=== PATIENT | female | born 1995 | race Caucasian/White ===

== ENCOUNTER 2018-01-31 14:20 | Day surgery (SDC) | payer OTHER, MEDICAID, SELFPAY ==
[2018-01-31] VITALS (9 sets, daily range): BP systolic 80–107; BP diastolic 38–83; PULSE 44–81; RESP 10–17; TEMP 36.1–37.1; O2SAT 96–100; BMI 18.6
--- NOTE | 2018-01-31 | PATH_ITS ---
[facility] Accession Number: [id number] . 01 Material submitted: . PART A: SMALL BOWEL PART B: GASTRIC . 01 Clinical history: . A: FOR CELIAC B: FOR H. PYLORI . 02 Diagnosis: A. Small Bowel, Biopsy: Duodenal mucosa with no diagnostic abnormality. Negative for active inflammation, features of sprue, dysplasia, and malignancy. . B. Stomach, Biopsy: Antral and body-type mucosa with no diagnostic abnormality. Negative for Helicobacter by immunohistochemistry. Negative for intestinal metaplasia. Negative for dysplasia and malignancy. [facility]/02/02/2018 . 02 Electronically signed: . Debra Perez MD, Pathologist NPI- [id number] . 01 Gross description: . Part A: SMALL BOWEL: Received in formalin are 3 fragment(s) of kendall, soft tissue measuring 0.3 x 0.3 x 0.2 cm to 0.2 x 0.1 x 0.1 cm submitted entirely in 1 cassette(s) Part B: GASTRIC: Received in formalin are 4 fragment(s) of kendall, soft tissue measuring 0.5 x 0.2 x 0.1 cm to 0.1 x 0.1 x 0.1 cm submitted entirely in 1 cassette(s) /CKI /CKI . 02 Microscopic: . Part B: An immunohistochemical stain was performed to evaluate for Helicobacter organisms and is negative. The control stain shows appropriate reactivity. . * This test was developed and its performance characteristics determined by [facility]. It has not been cleared or approved by the U.S. Food and Drug Administration. The FDA has determined that such clearance or approval is not necessary. This test is used for clinical purposes. It should not be regarded as investigational or for research. . 02 Pathologist provided ICD-10: R10.9 . 02 CPT . 553534, 479809, L97409 Performed at: 01 [facility] [address] [id number] MD Nino Fowler MD Phone: [phone] Performed at: 02 [facility] [id number] [place], [place] [id number] MD Ilan Arciniega MD Phone: [phone]
[2018-01-31] MEDS: SODIUM CHLORIDE 0.9% 1,000 ML 70 ML IV (14:52)
--- NOTE | 2018-01-31 15:13 | PM.HP.1 ---
History of Present Illness Date Patient Seen: 01/31/18 Chief complaint: [id number] EGD W/POSS BX Narrative: The patient is a 22-year-old female who is being seen as a primary EGD. I have reviewed prior records from [facility] from 09/13/2017 the patient presented with abdominal pain and was given antinausea medication and was discharged improved. She had visited our office on 01/19/2018 but was complaining of severe abdominal pain and was hence sent to [facility] ED. She was complaining of daily vomiting for an extended period of time. She was treated with antiemetics and IV fluids and did not have any emesis in the ED. She was discharged with outpatient GI follow-up. Patient History Family & Social History Social History: household members spouse,children Meds Home Medications Medication Instructions Recorded Confirmed Type ondansetron [Zofran ODT] 8 mg PO TID PRN MDD 32 01/31/18 01/31/18 History Review of Systems Review of Systems All systems reviewed & are unremarkable except as noted in HPI and below Exam Vital Signs (past 8 hours): - 01/31/18 14:55 Temperature 98.7 F Pulse Rate 70 Respiratory Rate 16 Blood Pressure 107/83 H Pulse Oximetry 100 Oxygen Delivery Method Room Air Narrative Exam Narrative: General: Patient is well developed, not in apparent distress Cardiovascular: Regular rate and rhythm, no murmurs, rubs, or gallops; no evidence of edema; no palpable abdominal aortic aneurysm Gastrointestinal: Normoactive bowel sounds, soft, nontender, nondistended, no rebound tenderness, no hepatosplenomegaly, no evidence of hernia Assessment & Plan Plan: Assessment/Plan Narrative: The patient is a 22-year-old female with recurrent nausea and vomiting and abdominal pain of unclear etiology. Workup done at [facility] and at [place] has been unrevealing for a clear-cut cause. The differential diagnosis includes peptic ulcer disease, hiatal hernia, GERD, celiac disease, less likely upper GI tumor. We will proceed with an upper endoscopy to evaluate. Regarding the procedure(s), the risks and potential complications, benefits, and alternatives (including not doing the procedure) were discussed with the patient. The risks include but are not limited to bleeding, infection, perforation which may require surgical intervention, missed lesions, and adverse reactions to sedative medicines. After a question and answer period, the patient agreed to proceed with the procedure(s) and gives informed consent.
--- NOTE | 2018-01-31 15:18 | P.HP_ITS ---
History of Present Illness Date Patient Seen: 01/31/18 Chief complaint: [id number] EGD W/POSS BX Narrative: The patient is a 22-year-old female who is being seen as a primary EGD. I have reviewed prior records from [facility] from 09/13/2017 the patient presented with abdominal pain and was given antinausea medication and was discharged improved. She had visited our office on 2017 but was complaining of severe abdominal pain and was hence sent to [facility] ED. She was complaining of daily vomiting for an extended period of time. She was treated with antiemetics and IV fluids and did not have any emesis in the ED. She was discharged with outpatient GI follow-up. Patient History Family & Social History Social History: household members spouse,children Meds Home Medications Medication Instructions Recorded Confirmed Type ondansetron [Zofran ODT] 8 mg PO TID PRN MDD 32 01/31/18 01/31/18 History Review of Systems Review of Systems All systems reviewed & are unremarkable except as noted in HPI and below Exam Vital Signs (past 8 hours): - 01/31/18 14:55 Temperature 98.7 F Pulse Rate 70 Respiratory Rate 16 Blood Pressure 107/83 H Pulse Oximetry 100 Oxygen Delivery Method Room Air Narrative Exam Narrative: General: Patient is well developed, not in apparent distress Cardiovascular: Regular rate and rhythm, no murmurs, rubs, or gallops; no evidence of edema; no palpable abdominal aortic aneurysm Gastrointestinal: Normoactive bowel sounds, soft, nontender, nondistended, no rebound tenderness, no hepatosplenomegaly, no evidence of hernia Assessment & Plan Plan: Assessment/Plan Narrative: The patient is a 22-year-old female with recurrent nausea and vomiting and abdominal pain of unclear etiology. Workup done at [facility] and at [place] has been unrevealing for a clear-cut cause. The differential diagnosis includes peptic ulcer disease, hiatal hernia, GERD, celiac disease, less likely upper GI tumor. We will proceed with an upper endoscopy to evaluate. Regarding the procedure(s), the risks and potential complications, benefits, and alternatives (including not doing the procedure) were discussed with the patient. The risks include but are not limited to bleeding, infection, perforation which may require surgical intervention, missed lesions, and adverse reactions to sedative medicines. After a question and answer period, the patient agreed to proceed with the procedure(s) and gives informed consent.
--- NOTE | 2018-01-31 15:57 | PM.OP.ENDO ---
Operative Date/Time/Diagnoses Date of procedure: 01/31/18 Procedure Notes Procedure in detail: Surgeon: Dread Alfred MD Procedure: Esophagogastroduodenoscopy with biopsy Preoperative diagnosis: Nausea, vomiting, epigastric pain; not responsive to medications; this procedure was done as a primary EGD with no prior office visit Postoperative diagnosis: Normal EGD, biopsies taken to rule out H pylori and celiac disease Medications: Monitored anesthesia care due to severe anxiety Preanesthesia Assessment An H and P was performed/updated and the Px?s ASA class is 1. The procedure was discussed in detail with the patient. The potential risks and complications including infection, bleeding, missed lesions, perforation, need for surgery in case of perforation, prolonged hospital stay, and were explained. A brief question and answer period was allotted and once all questions were answered, informed consent was obtained. The patient was brought back to the procedure room and placed on standard monitoring. The patient?s vital signs were monitored continuously throughout the entire procedure. Prior to starting, a timeout was performed to confirm the patient?s identity, allergies, medications, and procedure. Procedure in detail The patient was placed in left lateral decubitus position and a bite block was inserted. Once adequate sedation was obtained the tip of the upper endoscope was placed in the mouth and advanced under direct visualization without difficulty into the esophagus. Examination of the esophageal lumen showed no mucosal abnormalities all the way to the level of the GE junction. The upper endoscope was then advanced all the way to the 2nd portion of the duodenum. Careful examination showed no mucosal abnormalities in the visualized portion of the small bowel. Biopsies were taken to rule out celiac disease. The upper endoscope was then brought back to the stomach and a detailed examination of the gastric mucosa was performed and this was also normal. Biopsies were taken from the body and antrum to rule out H pylori. Retroflexion was performed in the stomach which revealed no lesions of the incisura, cardia, or fundus. The stomach was then decompressed and the procedure was terminated. The patient tolerated the procedure well and will be brought back to the recovery area to be discharged once criteria are met. Complications There were no complications and estimated blood loss was minimal. Recommendations: Resume previous diet Antiemetics as needed Cannabis abstinence discussed with the patient Follow up pathology results Office follow up if with persistent symptoms in 2-3 months An emergency contact number was given to the patient for any complications related to the procedure
--- NOTE | 2018-01-31 16:14 | P.DS_ITS ---
History of Present Illness Chief complaint: [id number] EGD W/POSS BX Narrative: The patient is a 22-year-old female who is being seen as a primary EGD. I have reviewed prior records from [facility] from 09/13/2017 the patient presented with abdominal pain and was given antinausea medication and was discharged improved. She had visited our office on 2017 but was complaining of severe abdominal pain and was hence sent to [facility] ED. She was complaining of daily vomiting for an extended period of time. She was treated with antiemetics and IV fluids and did not have any emesis in the ED. She was discharged with outpatient GI follow-up. Discharge Providers Primary care physician: KEITH Danielle Discharge provider: Dread Alfred MD Exam Vital Signs (past 8 hours): - 01/31/18 14:55 Temperature 98.7 F Pulse Rate 70 Respiratory Rate 16 Blood Pressure 107/83 H Pulse Oximetry 100 Oxygen Delivery Method Room Air Narrative Exam Narrative: General: Patient is well developed, not in apparent distress Cardiovascular: Regular rate and rhythm, no murmurs, rubs, or gallops; no evidence of edema; no palpable abdominal aortic aneurysm Gastrointestinal: Normoactive bowel sounds, soft, nontender, nondistended, no rebound tenderness, no hepatosplenomegaly, no evidence of hernia Discharge Plan Discharge Plan Patient Disposition: Home, Self-Care Discharge comment: Cannabis abstinence Discharge Med Rec/Prescriptions Prescriptions: Continue ondansetron [Zofran ODT] 4 mg Tablet,Disintegrating 8 mg PO TID MDD 32 PRN (Reason: Nausea) RF: 0 Discharge Orders: Discharge (Order); Ordered 01/31/18 Ordered By: Dread Alfred Provider Discharge Instructions Diet: Diet as Tolerated Visit Report/Discharge Packet Stand Alone Forms: Surgery Discharge Discharge Data Primary Care Provider: Kavita West Attending Provider: Dread Alfred
--- NOTE | 2018-01-31 16:53 | SUR.PHASEI ---
DR ALLEN IS AWARE OF PTS IRREGULAR HEART RATE AND VARYING HEART RATE=40'S -70'S, WILL CONTINUE TO WATCH AND MONITOR PT. PT IS SLEEPY BUT AWAKE, TOLERATING PO JUICE AND ICE CHIPS, PT STATES SHE HAS A HX OF AN IRREGULAR HEART RATE.
== END 2018-01-31 17:25 | disposition home or self-care (01) ==
PROVIDERS: PCP Nurse Practitioner Family; Visit Provider Internal Medicine Gastroenterology
PROC: 0DJ08ZZ Inspection of Upper Intestinal Tract, Via Natural or Artificial Opening Endoscopic (ICD-10-PCS; CPT 43235; principal; 2018-01-31 16:00)
DX: R10.9 Unspecified abdominal pain (principal); R11.2 Nausea with vomiting, unspecified; F41.9 Anxiety disorder, unspecified
CPT/HCPCS: 43239; 88305; 88342; J2250; J2704; J3010